=== PATIENT | female | born 1990 | race Caucasian/White ===

== ENCOUNTER → 2017-02-12 | Outpatient (REF) | payer OTHER | LOC: M LAB REF 09:57 | PROVIDERS: ATTEND Nurse Practitioner Family | DX: N39.0 Urinary tract infection, site not specified (principal) ==

== ENCOUNTER → 2017-08-01 | Outpatient (CLI) | payer OTHER ==
--- NOTE | 2017-08-02 06:17 | REP ---
Clinical: Pelvic pain. IUD placement. Technique: Transabdominal pelvic ultrasound followed by transvaginal examination for better evaluation of the endometrium and adnexa. Findings: Bladder is unremarkable and measures 14.6 x 9.9 x 10.9 cm . Normal anteverted uterus measures 8.1 x 1.9 x 4.5 cm . The endometrial complex measures 3.0 mm thickness. No discrete uterine or endometrial abnormalities are appreciated. IUD is identified in central satisfactory position above the lower uterine segment. Bilateral ovaries are normal in appearance and vascularity without evidence for torsion. Right ovary measures 2.9 x 2.2 x 2.1 cm. Left ovary measures 3.1 x 2.1 x 2.8 cm. No pelvic fluid or adnexal mass lesion . Impression: 1. Normal pelvic ultrasound. IUD in satisfactory position. Signed by Dallas Chacon MD 08/02/2017 06:09 A
== END ==
LOC: M RAD 13:18
PROVIDERS: ATTEND Advanced Practice Midwife
DX: Z30.431 Encounter for routine checking of intrauterine contraceptive device (principal)